=== PATIENT | female | born 1975 | race African-American/Black ===

== ENCOUNTER 2017-09-10 18:42 | Emergency (ER) | payer OTHER ==
[2017-09-10] MEDS ORDERED: AZITHROMYCIN 500 MG TAB PO STA (20:04)
[2017-09-10] MEDS ORDERED: IPRATROPIUM-ALBUTEROL 3 ML NEB INHALATION STA (20:04)
[2017-09-10] MEDS ORDERED: predniSONE 20 MG TAB PO STA (20:04)
--- NOTE | 2017-09-10 20:31 | ED ---
General Adult HPI - General Chief complaint: Shortness of Breath Stated complaint: SOB, HEAVY CHEST CONGESTION Time Seen by Provider: 09/10/17 19:44 Source: patient Mode of arrival: ambulatory Limitations: no limitations - History of Present Illness Initial comments: patient is a 41-year-old female who presents with a chief complaint of 2 months of cough and chest congestion. Patient states that she has not been seen by prior to today. Patient states that initially her symptoms were worse and they have gradually gotten better however she is still having a nonproductive cough. Patient states that initially she did have a fever, she took some old antibiotics which was Augmentin however she only took one a day. Patient cannot identify any inciting incidences. She denies any sick contacts. She does not identify anything aggravating or alleviating. She does admit that her cough is worse in the morning and evening.patient denies any chest pain, previously diagnosed cardiac or pulmonary pathology. - Related Data Home Medications Medication Instructions Recorded Confirmed Multivitamins, Thera [Multivitamin 1 tab PO DAILY 09/10/17 09/10/17 (formulary)] Previous Rx's Medication Instructions Recorded Azithromycin 250 mg PO DAILY 4 Days #4 tablet 09/10/17 predniSONE [Deltasone] 60 mg PO DAILY 4 Days #12 tablet 09/10/17 Allergies Allergy/AdvReac Type Severity Reaction Status Date / Time No Known Allergies Allergy Verified 09/10/17 20:12 Review of Systems ROS Statement: Those systems with pertinent positive or pertinent negative responses have been documented in the HPI. ROS Other: All systems not noted in ROS Statement are negative. Constitutional: Denies: fever Eyes: Denies: vision change ENT: Denies: ear pain, throat pain Respiratory: Reports: cough, dyspnea. Denies: wheezes Cardiovascular: Denies: chest pain Endocrine: Denies: fatigue Gastrointestinal: Denies: abdominal pain Genitourinary: Denies: dysuria Past Medical History Past Medical History: No Reported History History of Any Multi-Drug Resistant Organisms: MRSA Date of last positivie culture/infection: 04/30/2014 MDRO Source:: Back Past Surgical History: Section, Orthopedic Surgery, Tubal Ligation Additional Past Surgical History / Comment(s): uterine ablation Past Psychological History: No Psychological Hx Reported Smoking Status: Never smoker Past Alcohol Use History: Occasional Past Drug Use History: None Reported General Exam Limitations: no limitations General appearance: alert, in no apparent distress Head exam: Present: atraumatic, normocephalic Eye exam: Present: normal appearance ENT exam: Present: normal oropharynx, mucous membranes moist, TM's normal bilaterally, other (nasal turbinates are within normal limits) Neck exam: Absent: lymphadenopathy, thyromegaly Respiratory exam: Present: normal lung sounds bilaterally. Absent: wheezes Cardiovascular Exam: Present: regular rate, normal rhythm GI/Abdominal exam: Present: soft. Absent: distended, tenderness Rectal exam: Present: deferred Back exam: Present: normal inspection. Absent: CVA tenderness (R), CVA tenderness (L) Neurological exam: Present: alert, oriented X3 Psychiatric exam: Present: normal affect, normal mood Skin exam: Present: warm, dry, intact Course Vital Signs 09/10/17 09/10/17 09/10/17 18:52 19:59 20:19 Temperature 98.1 F Pulse Rate 70 72 70 Respiratory 20 18 Rate Blood Pressure 123/64 124/72 O2 Sat by Pulse 100 99 Oximetry 09/10/17 09/10/17 20:27 21:12 Temperature Pulse Rate 82 92 Respiratory 18 Rate Blood Pressure 144/68 O2 Sat by Pulse 99 Oximetry Medical Decision Making - Medical Decision Making patient is a 41-year-old female presents with a chief complaint of 2 months of cough and congestion. On initial evaluation, vital signs are stable. Patient is perk negative. History and physical examination are most consistent with bronchitis likely with ALLERGIC component. Patient was given her first dose of azithromycin and 60 mg of prednisone in the emergency department. EKG performed at 8:08 PM shows normal sinus rhythm with left axis deviation and a left bundle branch block. Ventricular rate is 62 bpm. Segment appeared to be within normal limits. There are no signs of ischemia present. given the EKG is not normal and patient does not have a known history of abnormal EKGs, we will add on basic labs and one set of troponins. 9:54 PM Lab evaluation this patient is unremarkable. Cardiac enzymes and ENP are within normal limits. Patient states that she feels that she can breathe a little easier after breathing treatments. X-ray of the chest does not identify any acute process. Given the fact that the patient has been having symptoms for about 2 months, she'll be treated as bronchitis. She was given her first dose of azithromycin and prednisone today. She'll be prescribed 4 more days of azithromycin and steroids. I discussed the results and findings with the patient. She is agreeable with current care plan. She was given explicit instructions on signs and symptoms to return to the emergency department. - Lab Data Result diagrams: 09/10/17 21:10 09/10/17 21:10 Lab Results 09/10/17 09/10/17 09/10/17 Range/Units 21:10 21:10 21:10 WBC 6.4 (3.8-10.6) k/uL RBC 4.35 (3.80-5.40) m/uL Hgb 12.8 (11.4-16.0) gm/dL Hct 38.0 (34.0-46.0) % MCV 87.4 (80.0-100.0) fL MCH 29.4 (25.0-35.0) pg MCHC 33.6 (31.0-37.0) g/dL RDW 14.0 (11.5-15.5) % Plt Count 201 (150-450) k/uL Neutrophils % 33 % Lymphocytes % 51 % Monocytes % 5 % Eosinophils % 8 % Basophils % 1 % Neutrophils # 2.1 (1.3-7.7) k/uL Lymphocytes # 3.2 (1.0-4.8) k/uL Monocytes # 0.4 (0-1.0) k/uL Eosinophils # 0.5 (0-0.7) k/uL Basophils # 0.1 (0-0.2) k/uL Sodium 142 (137-145) mmol/L Potassium 3.8 (3.5-5.1) mmol/L Chloride 108 H (98-107) mmol/L Carbon Dioxide 22 (22-30) mmol/L Anion Gap 12 mmol/L BUN 11 (7-17) mg/dL Creatinine 0.68 (0.52-1.04) mg/dL Est GFR (MDRD) Af Amer >60 (>60 ml/min/1.73 sqM) Est GFR (MDRD) Non-Af >60 (>60 ml/min/1.73 sqM) Glucose 103 H (74-99) mg/dL Calcium 9.5 (8.4-10.2) mg/dL Troponin I (0.000-0.034) ng/mL NT-Pro-B Natriuret Pep 63 pg/mL 09/10/17 Range/Units 21:10 WBC (3.8-10.6) k/uL RBC (3.80-5.40) m/uL Hgb (11.4-16.0) gm/dL Hct (34.0-46.0) % MCV (80.0-100.0) fL MCH (25.0-35.0) pg MCHC (31.0-37.0) g/dL RDW (11.5-15.5) % Plt Count (150-450) k/uL Neutrophils % % Lymphocytes % % Monocytes % % Eosinophils % % Basophils % % Neutrophils # (1.3-7.7) k/uL Lymphocytes # (1.0-4.8) k/uL Monocytes # (0-1.0) k/uL Eosinophils # (0-0.7) k/uL Basophils # (0-0.2) k/uL Sodium (137-145) mmol/L Potassium (3.5-5.1) mmol/L Chloride (98-107) mmol/L Carbon Dioxide (22-30) mmol/L Anion Gap mmol/L BUN (7-17) mg/dL Creatinine (0.52-1.04) mg/dL Est GFR (MDRD) Af Amer (>60 ml/min/1.73 sqM) Est GFR (MDRD) Non-Af (>60 ml/min/1.73 sqM) Glucose (74-99) mg/dL Calcium (8.4-10.2) mg/dL Troponin I <0.012 (0.000-0.034) ng/mL NT-Pro-B Natriuret Pep pg/mL Disposition Clinical Impression: Bronchiolitis Disposition: HOME SELF-CARE Condition: Good Instructions: Acute Bronchitis (ED) Referrals: Gaston Barry MD [Primary Care Provider] - 1-2 days
--- NOTE | 2017-09-10 21:09 | XR ---
EXAMINATION TYPE: XR chest 2V DATE OF EXAM: 09/10/2017 COMPARISON: 01/23/2012 HISTORY: Cough and congestion TECHNIQUE: Frontal and lateral views of the chest are obtained. FINDINGS: Heart and mediastinum are normal. Lungs are clear. Diaphragm is normal. There are chest le ads. Bony thorax is intact. IMPRESSION: Normal chest. No change.
[2017-09-10 21:21] LABS: Basophils # (A) 0.1 k/uL (0-0.2); Basophils % (A) 1 %; CH 28.9; CHCM 33.2; Eosinophils # (A) 0.5 k/uL (0-0.7); Eosinophils % (A) 8 %; HGB 12.8 gm/dL (11.4-16.0); Luc # (Auto) 0.11; Luc % (Auto) 2; Lymphocytes # (A) 3.2 k/uL (1.0-4.8); Lymphocytes % (A) 51 %; MCH 29.4 pg (25.0-35.0); MCHC 33.6 g/dL (31.0-37.0); MCV 87.4 fL (80.0-100.0); Mean Platelet Volume 8.7; Monocytes # (A) 0.4 k/uL (0-1.0); Monocytes % (A) 5 %; Neutrophils # (A) 2.1 k/uL (1.3-7.7); Neutrophils % (A) 33 %; RBC 4.35 m/uL (3.80-5.40); WBC 6.4 k/uL (3.8-10.6); WBC (Perox) 6.64
[2017-09-10 21:34] LABS: Anion Gap 12 mmol/L; Blood Urea Nitrogen 11 mg/dL (7-17); Calcium 9.5 mg/dL (8.4-10.2); Carbon Dioxide 22 mmol/L (22-30); Chloride 108 mmol/L (98-107); Glucose 103 mg/dL (74-99); Non-African American GFR(MDRD) >60 (>60 ml/min/1.73 sqM); Potassium 3.8 mmol/L (3.5-5.1); Sodium 142 mmol/L (137-145)
[2017-09-10 22:11] VITALS: TEMP 98.3
[2017-09-10 22:25] VITALS: BP 146/68; PULSE 83; RESP 16
== END 2017-09-10 22:20 | disposition home or self-care (01) ==
LOC: EC 18:42
DX: J21.9 Acute bronchiolitis, unspecified (principal); I44.7 Left bundle-branch block, unspecified; Z79.899 Other long term (current) drug therapy
CPT/HCPCS: 99285; 36415; 94640; 93005; 83880; 80048; 84484; 85025; 71020; J7512

== ENCOUNTER → 2023-06-06 | Outpatient (CLI) | payer OTHER ==
[2023-06-06 14:59] LABS: HCT 37.2 % (37.2-46.3); HGB 12.6 d/dL (12.0-15.0); MCH 28.8 pg (27.0-32.0); MCHC 33.9 d/dL (32.0-37.0); MCV 85.1 FL (80.0-97.0); Mean Platelet Volume 11.7 FL (9.5-12.2); NRBC Per 100 WBC 0 X 10*3/uL (0.00-0.01); Platelet Count 207 X 10*3/uL (140-440); RBC 4.37 X 10*6/uL (4.10-5.20); RDW 13.2 % (11.5-14.5); WBC 3.61 X 10*3/uL (4.50-10.00)
[2023-06-06 16:14] LABS: Chol/HDL Ratio 3.41 Ratio; Glucose 122 mg/dL (70-110); LDL Cholesterol,Calculated 131.3 mg/dL (0.0-131.0); VLDL Calculation 13.58 mg/dL (5.00-40.00)
--- NOTE | 2023-06-07 08:07 | MM ---
Reason for Exam: Screening (asymptomatic). Last mammogram was performed 8 year(s) and 6 month(s) ago. Patient History: Menarche at age 10. First Full-Term at age 18. Risk Values: Farideh 5 year model risk: 1.1%. NCI Lifetime model risk: 8.8%. Prior Study Comparison: 11/20/2003 Bilateral Special View Mammogram, [facility]. 11/24/2014 Bilateral Screening Mammogram, [facility]. 11/26/2014 Right Diagnostic Mammogram, [facility]. Tissue Density: The breast tissue is heterogeneously dense. This may lower the sensitivity of mammography. Findings: Analyzed By CAD. Benign-appearing calcifications bilaterally. There is no suspicious group of microcalcifications or new suspicious mass in either breast. Overall Assessment: Benign, BI-RAD 2 Management: Screening Mammogram of both breasts in [address] [facility] will attempt to contact patient to return for supplemental views and ultrasound if indicated. Patient should continue monthly self-breast exams. A clinical breast exam by your physician is recommended on an annual basis. This exam should not preclude additional follow-up of suspicious palpable abnormalities. Note on Farideh scores and lifetime risk: 1. A Farideh score greater than 3% is considered moderate risk. If this is the case, consider specialist referral to assess eligibility for a risk reducing agent. 2. If overall lifetime risk for the development of breast cancer is 20% or higher, the patient may qualify for future screening with alternating mammogram and breast MRI. Electronically signed and approved by: Wild Garcia DO
== END | disposition home or self-care (01) ==
LOC: RADMAMWWP 08:39
PROVIDERS: ATTEND Obstetrics & Gynecology
DX: Z12.31 Encounter for screening mammogram for malignant neoplasm of breast (principal); Z13.220 Encounter for screening for lipoid disorders; Z13.1 Encounter for screening for diabetes mellitus
CPT/HCPCS: 77063; 77067; 80061; 82947; 83036; 85027

== ENCOUNTER → 2023-08-08 | Outpatient (CLI) | payer OTHER | LOC: CPPFTMAIN 11:28 | PROVIDERS: ATTEND Internal Medicine | DX: J45.20 Mild intermittent asthma, uncomplicated (principal) | CPT/HCPCS: 94060; 94726; 94729 ==

== ENCOUNTER → 2023-08-17 | Outpatient (CLI) | payer OTHER ==
--- NOTE | 2023-08-17 11:58 | CA ---
Exercise Nuclear Stress Test Report Name: Essie Solorio Exam Date: 08/17/2023 10:53 Exam Location: [place] Stress Ht (in): 62 Wt (lb): 192 BSA: 1.88 Ordering Phys: Whitney Panda MD Referring Phys: Whitney Panda MD Technologist: Jake Guerra Age: 47 Gender: F : 1975 Procedure CPT: Indications: R06.09 Other forms of dyspnea ICD-10 Codes: Patient History: Medications: NONE,,,,, Meds past 24 hrs: Pretest Chest Pain: STRESS TEST Kristopher Protocol Exercise Duration (min:sec): 08:[address] Depressions (mm): Angina Score: Santiago Score: Resting HR (bpm): 64 Peak HR (bpm): 161 Resting BP (mmHg): 130 / 74 Peak BP (mmHg): 185 / 71 MPHR: 171 Target HR: 145 % MPHR: 94 METS: 10.3 Total Dose: Peak Dose: Atropine: Double Product: 55901 BP Response: Stress Termination: TARGET HR REACHED/MAX EXERTION Stress Symptoms: NO SYMPTOMS Stress Summary: ECG ANALYSIS Resting ECG: Sinus bradycardia, heart rate 58 beats minute, left bundle-branch block Stress ECG: ECG is nondiagnostic due to resting left bundle- branch block CONCLUSIONS Good exercise tolerance for patient's age achieving 10.3 METS Nondiagnostic ECG due to resting left bundle-branch block Please refer to the nuclear portion of the stress test for complete interpretation of the study Dr Chandra Ponce (Electronically Signed) Final Date: 17 August 2023 11:58
== END | disposition home or self-care (01) ==
LOC: RADNMMAIN 08:49
PROVIDERS: ATTEND Internal Medicine
DX: I44.7 Left bundle-branch block, unspecified (principal); R06.09 Other forms of dyspnea
CPT/HCPCS: 93017; 78452; A9500

== ENCOUNTER → 2023-09-24 | Outpatient (CLI) | payer OTHER ==
--- NOTE | 2023-09-25 09:59 | CA ---
Transthoracic Echo Report Name: Essie Solorio Age: 48 Gender: F : 1975 Exam Date: 09/24/2023 12:05 Exam Location: [place] Echo Ht (in): 62 Wt (lb): 195 Ordering Physician: Whitney Panda MD Attending/Referring Phys: Voice Instructor Karine Bonds [facility] Procedure CPT: Indications: R06.09 Other forms of dyspnea Cardiac Hx: Technical Quality: Fair Contrast 1: Total Dose (mL): Contrast 2: Total Dose (mL): MEASUREMENTS (Male / Female) Normal Values 2D ECHO LV Diastolic Diameter PLAX 4.6 cm 4.2 - 5.9 / 3.9 - 5.3 cm LV Systolic Diameter PLAX 3.5 cm IVS Diastolic Thickness 1.0 cm 0.6 - 1.0 / 0.6 - 0.9 cm LVPW Diastolic Thickness 1.0 cm 0.6 - 1.0 / 0.6 - 0.9 cm LV Relative Wall Thickness 0.5 LVOT Diameter 2.0 cm LV Diastolic Volume MOD BP 95.8 cm??? 67 - 155 / 56 - 104 cm??? LV Systolic Volume MOD BP 58.1 cm??? 22 - 58 / 19 - 49 cm??? LV Ejection Fraction MOD BP 39.3 % >= 55 % LV Cardiac Index MOD BP 1107.5 cm???/min???m??? LV Diastolic Volume MOD 4C 91.5 cm??? LV Systolic Volume MOD 4C 51.0 cm??? LV Ejection Fraction MOD 4C 44.3 % LV Cardiac Index MOD 4C 1189.3 cm???/min???m??? LV Diastolic Length 4C 8.1 cm LV Systolic Length 4C 6.6 cm LV Diastolic Volume MOD 2C 97.5 cm??? LV Systolic Volume MOD 2C 58.5 cm??? LV Ejection Fraction MOD 2C 40.0 % LV Cardiac Index MOD 2C 1146.3 cm???/min???m??? LV Diastolic Length 2C 8.3 cm LV Systolic Length 2C 7.5 cm Ascending Aorta Diameter 3.0 cm M-MODE Aortic Root Diameter MM 2.6 cm LA Systolic Diameter MM 3.6 cm LA Ao Ratio MM 1.4 AV Cusp Separation MM 2.2 cm DOPPLER AV Peak Velocity 122.7 cm/s AV Peak Gradient 6.0 mmHg AV Mean Velocity 98.3 cm/s AV Mean Gradient 4.1 mmHg AV Velocity Time Integral 25.9 cm LVOT Peak Velocity 105.7 cm/s LVOT Peak Gradient 4.5 mmHg LVOT Velocity Time Integral 19.5 cm LVOT Stroke Volume 63.9 cm??? LVOT Stroke Volume Index 33.8 ml/m??? LVOT Cardiac Index 1877.6 cm???/min???m??? AV Area Cont Eq vti 2.5 cm??? AV Area Cont Eq pk 2.8 cm??? Mitral E Point Velocity 89.3 cm/s Mitral A Point Velocity 101.5 cm/s Mitral E to A Ratio 0.9 MV Deceleration Time 274.1 ms LV E' Lateral Velocity 5.3 cm/s Mitral E to LV E' Lateral Ratio 17.0 LV E' Septal Velocity 5.6 cm/s Mitral E to LV E' Septal Ratio 15.9 TR Peak Velocity 177.4 cm/s TR Peak Gradient 12.6 mmHg Right Atrial Pressure 3.0 mmHg Pulmonary Artery Systolic Pressu 15.6 mmHg Right Ventricular Systolic Press 15.6 mmHg FINDINGS Left Ventricle Mildly increased left ventricular wall thickness. Left ventricular cavity size normal. Mildly increased left ventricular systolic volume. Moderately decreased left ventricular ejection fraction. Left ventricular ejection fraction is estimated at 40%. Abnormal septal motion consistent with left bundle branch block. Right Ventricle Mild right ventricular dilatation. Right Atrium Mild right atrial dilatation. Left Atrium Mild left atrial dilatation. Mitral Valve Mitral valve thickened. Mild thickening/calcification of the posterior mitral valve leaflet. Mild mitral regurgitation. Aortic Valve Trileaflet aortic valve. No aortic regurgitation. Tricuspid Valve Structurally normal tricuspid valve. Trace tricuspid regurgitation. Pulmonic Valve Pulmonic valve not well visualized. Trace pulmonic regurgitation. Pericardium No pericardial effusion. Aorta Normal size aortic root and proximal ascending aorta. CONCLUSIONS Dilated LV. The LV systolic function is impaired. The ejection fraction is about 40% [id number] mitral regurgitation with a posteriorly directed jet Previewed by: Dr. Ricardo Smith MD (Electronically Signed) Final Date: 25 September 2023 09:59
== END | disposition home or self-care (01) ==
LOC: RADECHMAIN 11:42
PROVIDERS: ATTEND Internal Medicine
DX: I34.0 Nonrheumatic mitral (valve) insufficiency (principal); R06.09 Other forms of dyspnea
CPT/HCPCS: 93306

== ENCOUNTER 2024-01-28 06:15 | Day surgery (SDC) | payer OTHER ==
[2024-01-25 13:34] VITALS: BMI 36.6
[~2024-01-28 06:15] MED LIST: ALPRAZolam 0.25 MG TAB PO PRN; ALPRAZolam 0.5 MG TAB PO PRN; ASPIRIN 325 MG TAB PO STA; ATORVASTATIN 80 MG TAB PO STA; HEPARIN SODIUM,PORCINE (1 ML) 2,500 UNIT in SODIUM CHLORIDE 0.9% 250 ML IRRIGATION PRN; HEPARIN SODIUM,PORCINE 10,000 UNIT in SODIUM CHLORIDE 0.9% 1,000 ML IRRIGATION PRN; NITROGLYCERIN SL TABS 0.4 MG TAB SUBLINGUAL PRN; SODIUM CHLORIDE 0.9% 1,000 ML in EMPTY BAG 1 BAG IV SCH
[2024-01-28] MEDS: SODIUM CHLORIDE 0.9% 1,000 ML IV ONE (06:24)
[2024-01-28 06:46] LABS: Basophils # (A) 0.1 k/uL (0-0.2); Basophils % (A) 1 %; Eosinophils # (A) 0.3 k/uL (0-0.7); Eosinophils % (A) 6 %; HCT 38.8 % (34.0-46.0); HGB 12.9 gm/dL (11.4-16.0); Lymphocytes # (A) 2.2 k/uL (1.0-4.8); Lymphocytes % (A) 45 %; MCHC 33.4 g/dL (31.0-37.0); MCV 86.7 fL (80.0-100.0); Mean Platelet Volume 8.8; Monocytes # (A) 0.3 k/uL (0-1.0); Monocytes % (A) 5 %; Neutrophils # (A) 2.1 k/uL (1.3-7.7); Neutrophils % (A) 41 %; Platelet Count 205 k/uL (150-450); RBC 4.47 m/uL (3.80-5.40)
[2024-01-28 07:01] LABS: African American GFR (CKD) >90 (>60 ml/min/1.73 sqM); Anion Gap 9 mmol/L; Blood Urea Nitrogen 14 mg/dL (7-17); Calcium 9.1 mg/dL (8.4-10.2); Carbon Dioxide 22 mmol/L (22-30); Chloride 109 mmol/L (98-107); Glucose 118 mg/dL (74-99); Non-African American GFR(CKD) >90 (>60 ml/min/1.73 sqM); Potassium 3.8 mmol/L (3.5-5.1); Sodium 140 mmol/L (137-145)
[2024-01-28 07:22] VITALS: RESP 16; TEMP 98.6
[2024-01-28] MEDS ORDERED: VERAPAMIL 2.5 MG/ML 2 ML AMP ONE (07:24)
[2024-01-28] MEDS ORDERED: LIDOCAINE 1% INJ 10MG/ML (20 ML MDV) ONE (07:24)
[2024-01-28] MEDS ORDERED: HEPARIN SODIUM 1,000 UN/ML (10ML VL) ONE (07:35)
[2024-01-28] MEDS: MIDAZOLAM 2 MG/2 ML VIAL IVP ONE (07:42)
[2024-01-28] MEDS: LIDOCAINE 1% INJ 10MG/ML (20 ML MDV) SQ ONE (07:42)
[2024-01-28] MEDS: VERAPAMIL SYRINGE (5 MG/10 ML) INTRAARTER ONE (07:47)
[2024-01-28] MEDS: HEPARIN SODIUM 1,000 UN/ML (10ML VL) IVP ONE (07:47)
[2024-01-28] MEDS: IOPAMIDOL-370 100ML BTL INJ ONE (07:54)
[2024-01-28] MEDS ORDERED: RX INFO: IV CONTRAST WAS GIVEN 1 EACH MISC MISCELLANE PRN (07:57)
[2024-01-28] MEDS ORDERED: SODIUM CHLORIDE 0.9% 1,000 ML IV SCH (08:00)
--- NOTE | 2024-01-28 08:01 | P.PCN ---
Date of Procedure: 01/28/24 Operative Findings: CARDIAC CATHETERIZATION PERFORMING PHYSICIAN: Ricardo Smith MD, RPVI PROCEDURE PERFORMED: 1. Selective right and left coronary angiogram 2. Left heart catheterization 3. Ultrasound-guided access of the right radial artery INDICATION: Symptomatic 48-year-old female patient who underwent myocardial perfusion imaging stress that showed lateral ischemia COMPLICATION: None APPROACH: Right radial artery LEVEL OF SEDATION: Moderate with a sedation length of 13 minutes PROCEDURE DESCRIPTION: After obtaining an informed consent, the patient was brought to cardiac lab director. Local anesthesia was performed using lidocaine subcutaneously. The right radial artery was cannulated using Seldinger technique, the guidewire passed easily, following that we advanced a 5-Ecuadorean sheath dilator assembly, the wire and dilator were removed and sheath was flushed. Following that, 2 mg of verapamil along with 5000 unit heparin were given. Selective right and left coronary angiogram using a 6-Ecuadorean JR4 and JL 3.5 catheters. Following that we did left heart catheterization using 6-Ecuadorean pigtail catheter. The procedure was completed there was no complication. SELECTIVE CORONARY ANGIOGRAM: The right coronary artery: Large-caliber vessel and a dominant vessel appears to be angiographically normal Left main: Is angiographically normal but short left main The left circumflex: Large-caliber vessel nondominant vessel appears to be angiographically normal and gives rise into an OM1 which seems to be normal The left anterior descending artery: Large-caliber vessel appears to be normal gives rise into a large leg branch which seems to be normal HEMODYNAMICS: The LVEDP was 15 mmHg with no significant gradient across aortic valve CONCLUSION: 1. Normal coronary angiogram 2. Normal left-sided filling pressure POSTPROCEDURE MANAGEMENT: Medical treatment
[2024-01-28 10:54] VITALS: BP 112/63
[2024-01-28 12:20] VITALS: PULSE 68
== END 2024-01-28 12:04 | disposition home or self-care (01) ==
LOC: CATHCVL 06:15
PROVIDERS: ATTEND Internal Medicine Interventional Cardiology
DX: I25.10 Atherosclerotic heart disease of native coronary artery without angina pectoris (principal); I10 Essential (primary) hypertension; E78.5 Hyperlipidemia, unspecified; Z79.899 Other long term (current) drug therapy; Z98.890 Other specified postprocedural states
CPT/HCPCS: 93458; 76937; 80048; 85025; 81025; C1769; C1894; J2250; J2001; J1644; Q9967

== ENCOUNTER 2024-02-18 08:46 | Day surgery (SDC) | payer OTHER ==
[2024-02-18 09:17] VITALS: TEMP 98.4
[2024-02-18] MEDS: SODIUM CHLORIDE 0.9% 500 ML IV ONE (09:43)
[2024-02-18] MEDS ORDERED: fentaNYL (PF) 50 MCG/ML 2 ML AMP ONE (10:16)
[2024-02-18] MEDS: BENZOCAINE SPRAY 1 CAN TOPICAL ONE (10:40)
[2024-02-18] MEDS: MIDAZOLAM 2 MG/2 ML VIAL IVP ONE ×2 (10:49→10:52)
[2024-02-18] MEDS: fentaNYL (PF) 50 MCG/ML 2 ML AMP IVP ONE (10:49)
--- NOTE | 2024-02-18 11:52 | P.PCN ---
Date of Procedure: 02/18/24 Operative Findings: TRANSESOPHAGEAL ECHOCARDIOGRAM MAJOR ACCOUNT MANAGER: JUSTYN BEAVERS MD, RPVI INDICATION: Rule out atrial septal defect SEDATION: Conscious sedation COMPLICATION: None LEVEL OF SEDATION Moderate with sedation length of 20 minutes PROCEDURE DESCRIPTION: After obtaining an informed consent, the patient was brought to transesophageal echocardiogram room. Pulse oximetry and heart monitors were attached to the patient. The patient throat was sprayed using lidocaine. The patient was turned into left lateral position. After that a bite guard was placed. After an appropriate conscious sedation was initiated, the transesophageal echocardiogram was advanced through a bite guard into the mid esophagus. A 2-D echocardiogram images, color Doppler images, continuous wave images, pulse-wave images, of various cardiac structure were performed. After that the transesophageal echocardiogram probe was advanced into the stomach and fixed to obtain transgastric view was. The probe was brought into the mid esophagus. Inter-atrial septum was interrogated using 2D images, color Doppler images, and then contrast study. After that transesophageal echocardiogram was withdrawn out and upon withdrawing the descending thoracic aorta all the way up to the arch was evaluated. CONCLUSION: 1. Intact interatrial septum with no PFO or ASD 2. Normal biventricular dimensions and systolic function 3. Normal intracardiac valves 4. No evidence of pericardial effusion
[2024-02-18 12:19] VITALS: BP 131/88; PULSE 78; RESP 16
== END 2024-02-18 12:30 | disposition home or self-care (01) ==
LOC: CATHCVL 08:46
PROVIDERS: ATTEND Internal Medicine Interventional Cardiology
DX: I11.0 Hypertensive heart disease with heart failure (principal); I50.22 Chronic systolic (congestive) heart failure; E78.5 Hyperlipidemia, unspecified; Z79.82 Long term (current) use of aspirin; Z79.899 Other long term (current) drug therapy
CPT/HCPCS: 93312; 93320; 93325; 81025; J2250; J3010

== ENCOUNTER 2024-03-18 22:56 | Emergency (ER) | payer OTHER ==
[2024-03-18 23:02] VITALS: TEMP 97.9
[2024-03-18 23:19] LABS: Basophils # (A) 0.1 k/uL (0-0.2); Basophils % (A) 1 %; Eosinophils # (A) 0.4 k/uL (0-0.7); Eosinophils % (A) 6 %; HCT 39.7 % (34.0-46.0); HGB 13.3 gm/dL (11.4-16.0); Lymphocytes % (A) 53 %; MCH 29.1 pg (25.0-35.0); MCHC 33.4 g/dL (31.0-37.0); MCV 87.2 fL (80.0-100.0); Mean Platelet Volume 8.8; Monocytes # (A) 0.2 k/uL (0-1.0); Monocytes % (A) 3 %; Neutrophils % (A) 35 %; Platelet Count 193 k/uL (150-450); RBC 4.55 m/uL (3.80-5.40); RDW 13.3 % (11.5-15.5); WBC 5.7 k/uL (3.8-10.6)
[2024-03-18 23:28] LABS: Partial Thromboplastin Time 25.4 sec (22.0-30.0); Prothrombin Time 10.9 sec (10.0-12.5)
[2024-03-18 23:33] LABS: ALT 39 U/L (4-34); AST 35 U/L (14-36); African American GFR (CKD) >90 (>60 ml/min/1.73 sqM); Albumin 4.7 g/dL (3.5-5.0); Alkaline Phosphatase 89 U/L (38-126); Anion Gap 5 mmol/L; Blood Urea Nitrogen 14 mg/dL (7-17); Calcium 8.6 mg/dL (8.4-10.2); Carbon Dioxide 24 mmol/L (22-30); Chloride 109 mmol/L (98-107); Glucose 114 mg/dL (74-99); Magnesium 1.8 mg/dL (1.6-2.3); Non-African American GFR(CKD) >90 (>60 ml/min/1.73 sqM); Potassium 3.9 mmol/L (3.5-5.1); Sodium 138 mmol/L (137-145); Total Bilirubin 0.6 mg/dL (0.2-1.3); Total Protein 7.7 g/dL (6.3-8.2)
[2024-03-19 00:48] VITALS: RESP 18
--- NOTE | 2024-03-19 01:08 | XR ---
EXAM: XR Chest, 2 Views CLINICAL HISTORY: ITS.REASON XR Reason: dysrhythmia TECHNIQUE: Frontal and lateral views of the chest. COMPARISON: No relevant prior studies available. FINDINGS: Lungs: Unremarkable. No consolidation. Pleural space: Unremarkable. No pneumothorax. Heart: Unremarkable. No cardiomegaly. Mediastinum: Unremarkable. Normal mediastinal contour. Bones/joints: Unremarkable. No acute fracture. IMPRESSION: No consolidation.
--- NOTE | 2024-03-19 01:31 | ED ---
Arrhythmia/Palpitations HPI - General Chief Complaint: Arrhythmia/Palpitations Stated Complaint: Heart Palpitations Time Seen by Provider: 03/18/24 23:23 Source: patient Mode of arrival: ambulatory Limitations: no limitations - History of Present Illness Initial Comments: 48-year-old female presenting with chief complaint of palpitations. Patient states that this evening while she was opening a package she felt the sensation as if her heart was racing. She was having a bit of left-sided rib discomfort as well. She is not having any current chest pain. She denies shortness of breath. No cough, congestion, sore throat, fever, chills. No lower extremity swelling. No use of oral contraceptive pills. No recent surgery or travel. No history of blood clots. No dizziness. - Related Data Home Medications Medication Instructions Recorded Confirmed Albuterol Inhaler [Ventolin Hfa 1 - 2 puff INHALATION Q6H PRN 01/25/24 02/18/24 Inhaler] Atorvastatin [Lipitor] 40 mg PO DAILY 01/25/24 02/18/24 Spironolactone 25 mg PO DAILY 01/25/24 02/18/24 carvediloL [Coreg] 3.125 mg PO BID 01/25/24 02/18/24 lisinopriL 2.5 mg PO DAILY 01/25/24 02/18/24 Aspirin 81 mg PO DAILY 01/28/24 02/18/24 Allergies Allergy/AdvReac Type Severity Reaction Status Date / Time No Known Allergies Allergy Verified 03/18/24 23:00 Review of Systems ROS Statement: Those systems with pertinent positive or pertinent negative responses have been documented in the HPI. ROS Other: All systems not noted in ROS Statement are negative. Past Medical History Past Medical History: Hyperlipidemia, Hypertension, Osteoarthritis (OA) Additional Past Medical History / Comment(s): See Dr Smith's H&P. "Wheezy at times". Environmental allergies. Heartburn and bloating. Possible NM diagnosed during cardiac testing - patient unaware of it. pt states she gets gas under her ribs recently with new meds and DR Smith is aware History of Any Multi-Drug Resistant Organisms: MRSA Date of last positivie culture/infection: 04/30/2014 MDRO Source:: Back Past Surgical History: Section, Heart Catheterization, Orthopedic Surgery, Tubal Ligation, Uterine Ablation Additional Past Surgical History / Comment(s): Left rotator cuff repair. Past Anesthesia/Blood Transfusion Reactions: Motion Sickness, Postoperative Nausea & Vomiting (PONV) Past Psychological History: No Psychological Hx Reported Smoking Status: Never smoker Past Alcohol Use History: Occasional Past Drug Use History: Marijuana - Past Family History Mother Family Medical History: No Reported History General Exam Limitations: no limitations General appearance: alert, in no apparent distress Head exam: Present: atraumatic, normocephalic Eye exam: Present: normal appearance, EOMI Neck exam: Present: normal inspection. Absent: meningismus Respiratory exam: Present: normal lung sounds bilaterally. Absent: respiratory distress, wheezes, rales, rhonchi, stridor Cardiovascular Exam: Present: regular rate, normal rhythm, normal heart sounds. Absent: systolic murmur, diastolic murmur, rubs, gallop, clicks Extremities exam: Absent: pedal edema Neurological exam: Present: alert, oriented X3 Psychiatric exam: Present: normal affect, normal mood Skin exam: Present: normal color Course Vital Signs 03/18/24 03/19/24 03/19/24 22:58 00:16 01:42 Temperature 97.9 F Pulse Rate 103 H 90 78 Respiratory 20 18 18 Rate Blood Pressure 166/106 126/88 118/88 O2 Sat by Pulse 97 96 98 Oximetry Medical Decision Making - Medical Decision Making Was pt. sent in by a medical professional or institution ([facility], OPTICAL ASSISTANT, urgent care, hospital, or long term...) When possible be specific @ -No Did you speak to anyone other than the patient for history (EMS, parent, family, police, friend...)? What history was obtained from this source @ -No Did you review nursing and triage notes (agree or disagree)? Why? @ -I reviewed and agree with nursing and triage notes Were old charts reviewed (outside hosp., previous admission, EMS record, old EKG, old radiological studies, urgent care reports/EKG's, long term records)? Report findings @ -No old charts were reviewed Differential Diagnosis (chest pain, altered mental status, abdominal pain women, abdominal pain men, vaginal bleeding, weakness, fever, dyspnea, syncope, headache, dizziness, GI bleed, back pain, seizure, CVA, palpatations, mental health, musculoskeletal)? @ -Differential Palpitations Ventricular arrhythmias, atrial arrhythmias, myocardial infarction, anemia, thyrotoxicosis, electrolyte imbalance, hypokalemia, pulmonary embolism, pulmonary disease, drugs, alcohol, anxiety, stress.... This is not meant to be an all-inclusive list. EKG interpreted by me (3pts min.). @ -EKG shows sinus rhythm ventricular rate 85. UT interval 160. QRS 152. QT 433. QTc 476. No acute changes when compared to previous EKG. X-rays interpreted by me (1pt min.). @ -Chest x-ray shows no consolidation. CT interpreted by me (1pt min.). @ -None done U/S interpreted by me (1pt. min.). @ -None done What testing was considered but not performed or refused? (CT, X-rays, U/S, labs)? Why? @ -None What meds were considered but not given or refused? Why? @ -None Did you discuss the management of the patient with other professionals (professionals i.e. , PA, OPTICAL ASSISTANT, lab, RT, psych nurse, social service technician, irrigator overhead, teacher, national service officer, continuous pillowcase cutter)? Give summary @ -No Was smoking cessation discussed for >3mins.? @ -No Was critical care preformed (if so, how long)? @ -No Were there social determinants of health that impacted care today? How? (Homelessness, low income, unemployed, alcoholism, drug addiction, tr ansportation, low edu. Level, literacy, decrease access to med. care, assisted, rehab)? @ -No Was there de-escalation of care discussed even if they declined (Discuss DNR or withdrawal of care, Hospice)? DNR status @ -No What co-morbidities impacted this encounter? (DM, HTN, Smoking, COPD, CAD, Cancer, CVA, ARF, Chemo, Hep., AIDS, mental health diagnosis, sleep apnea, morbid obesity)? @ -None Was patient admitted / discharged? Hospital course, mention meds given and route, prescriptions, significant lab abnormalities, going to OR and other pertinent info. @ -48-year-old female presenting with chief complaint of palpitations. She states that this evening she felt as though her heart was racing. History and physical exam are conducted. Lab work shows no leukocytosis or anemia. Negative troponin. EKG shows sinus rhythm. On reassessment the patient is resting comfortably showing no acute signs of distress. She reports improvement in her symptoms. I offered the patient admission for observation. Patient declined stating she would rather follow-up with her PCP and sterile processing technician out patient. I believe this is reasonable. Discharged home. Follow-up with PCP. Report back to ER with any new or worsening symptoms. Discussed return parameters and answered all questions. Patient conveyed verbal understanding and agreed to the plan. I discussed this case in detail with my attending Dr. Ceja Undiagnosed new problem with uncertain prognosis? @ -No Drug Therapy requiring intensive monitoring for toxicity (Heparin, Nitro, Insulin, Cardizem)? @ -No Were any procedures done? @ -No Diagnosis/symptom? @ -Palpitations Acute, or Chronic, or Acute on Chronic? @ -Acute Uncomplicated (without systemic symptoms) or Complicated (systemic symptoms)? @ -Uncomplicated Side effects of treatment? @ -No Exacerbation, Progression, or Severe Exacerbation? @ -No Poses a threat to life or bodily function? How? (Chest pain, USA, NM, pneumonia, PE, COPD, DKA, ARF, appy, cholecystitis, CVA, Diverticulitis, Homicidal, Suicidal, threat to staff... and all critical care pts) @ -Low likelihood - Lab Data Result diagrams: 03/18/24 23:02 03/18/24 23:02 Lab Results 03/18/24 03/18/24 03/18/24 Range/Units 23:02 23:02 23:02 WBC 5.7 (3.8-10.6) k/uL RBC 4.55 (3.80-5.40) m/uL Hgb 13.3 (11.4-16.0) gm/dL Hct 39.7 (34.0-46.0) % MCV 87.2 (80.0-100.0) fL MCH 29.1 (25.0-35.0) pg MCHC 33.4 (31.0-37.0) g/dL RDW 13.3 (11.5-15.5) % Plt Count 193 (150-450) k/uL MPV 8.8 Neutrophils % 35 % Lymphocytes % 53 % Monocytes % 3 % Eosinophils % 6 % Basophils % 1 % Neutrophils # 2.0 (1.3-7.7) k/uL Lymphocytes # 3.0 (1.0-4.8) k/uL Monocytes # 0.2 (0-1.0) k/uL Eosinophils # 0.4 (0-0.7) k/uL Basophils # 0.1 (0-0.2) k/uL PT 10.9 (10.0-12.5) sec INR 1.0 (<1.2) APTT 25.4 (22.0-30.0) sec Sodium 138 (137-145) mmol/L Potassium 3.9 (3.5-5.1) mmol/L Chloride 109 H (98-107) mmol/L Carbon Dioxide 24 (22-30) mmol/L Anion Gap 5 mmol/L BUN 14 (7-17) mg/dL Creatinine 0.64 (0.52-1.04) mg/dL Est GFR (CKD-EPI)AfAm >90 (>60 ml/min/1.73 sqM) Est GFR (CKD-EPI)NonAf >90 (>60 ml/min/1.73 sqM) Glucose 114 H (74-99) mg/dL Calcium 8.6 (8.4-10.2) mg/dL Magnesium 1.8 (1.6-2.3) mg/dL Total Bilirubin 0.6 (0.2-1.3) mg/dL AST 35 (14-36) U/L ALT 39 H (4-34) U/L Alkaline Phosphatase 89 (38-126) U/L Troponin I (0.000-0.034) ng/mL Total Protein 7.7 (6.3-8.2) g/dL Albumin 4.7 (3.5-5.0) g/dL 03/18/24 Range/Units 23:02 WBC (3.8-10.6) k/uL RBC (3.80-5.40) m/uL Hgb (11.4-16.0) gm/dL Hct (34.0-46.0) % MCV (80.0-100.0) fL MCH (25.0-35.0) pg MCHC (31.0-37.0) g/dL RDW (11.5-15.5) % Plt Count (150-450) k/uL MPV Neutrophils % % Lymphocytes % % Monocytes % % Eosinophils % % Basophils % % Neutrophils # (1.3-7.7) k/uL Lymphocytes # (1.0-4.8) k/uL Monocytes # (0-1.0) k/uL Eosinophils # (0-0.7) k/uL Basophils # (0-0.2) k/uL PT (10.0-12.5) sec INR (<1.2) APTT (22.0-30.0) sec Sodium (137-145) mmol/L Potassium (3.5-5.1) mmol/L Chloride (98-107) mmol/L Carbon Dioxide (22-30) mmol/L Anion Gap mmol/L BUN (7-17) mg/dL Creatinine (0.52-1.04) mg/dL Est GFR (CKD-EPI)AfAm (>60 ml/min/1.73 sqM) Est GFR (CKD-EPI)NonAf (>60 ml/min/1.73 sqM) Glucose (74-99) mg/dL Calcium (8.4-10.2) mg/dL Magnesium (1.6-2.3) mg/dL Total Bilirubin (0.2-1.3) mg/dL AST (14-36) U/L ALT (4-34) U/L Alkaline Phosphatase (38-126) U/L Troponin I <0.012 (0.000-0.034) ng/mL Total Protein (6.3-8.2) g/dL Albumin (3.5-5.0) g/dL Disposition Clinical Impression: Palpitations Disposition: HOME SELF-CARE Condition: Good Instructions (If sedation given, give patient instructions): Heart Palpitations (ED) Additional Instructions: Follow-up with PCP and sterile processing technician. Report back to ER with any new or worsening symptoms. Is patient prescribed a controlled substance at d/c from ED?: No Referrals: Whitney Panda MD [Primary Care Provider] - 1-2 days Ricardo Smith MD [STAFF PHYSICIAN] - 1-2 days Time of Disposition: 01:31
[2024-03-19 01:46] VITALS: BP 118/88; PULSE 78
== END 2024-03-19 01:46 | disposition home or self-care (01) ==
LOC: EC 22:56
DX: R00.2 Palpitations (principal)
CPT/HCPCS: 36415; 71046; 80053; 83735; 84484; 85025; 85610; 85730; 93005; 99285